=== PATIENT | male | born 1990 | race Two or more races ===

== ENCOUNTER 2025-03-03 14:17 | Inpatient (IN) | payer BC ==
[~2025-03-03] VITALS: Ht 157.5 cm; Wt 79.8 kg
--- NOTE | 2025-03-03 14:34 | ELECTROCARDIOGRAPH REPORT ---
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 Pancho Buitrago Measurements Intervals [place] Rate: 73 P: 60 GA: 145 QRS: 104 QRSD: 86 T: 23 QT: 333 QTc: 367 Interpretive Statements Sinus rhythm Right axis deviation ST elev, probable normal early repol pattern Electronically Signed On 03-04-2025 19:28:[address] Pancho Buitrago Please click the below link to view image of tracing.
[2025-03-03 14:58] LABS: MEAN PLATELET VOLUME 9.3 FL (7.4-10.4); RED CELL DISTRIBUTION WIDTH 13.4 % (11.5-14.5)
--- NOTE | 2025-03-03 15:11 | RADIOLOGY REPORT ---
CHEST RADIOGRAPH Indication: CP Technique: Single frontal view of the chest was obtained Comparison: None FINDINGS: Lines and Tubes: None Lungs: No focal consolidation. Pleura: No effusion. No pneumothorax. Cardiomediastinal contours: Unremarkable Bones: No acute osseous abnormality. IMPRESSION: No acute cardiopulmonary disease.
[2025-03-03 15:17] LABS: CREATININE 0.84 MG/DL (0.60-1.10); PRO BRAIN NATRIURETIC PEPTIDE 308 PG/ML (0-125); TOTAL CARBON DIOXIDE 30.4 MMOL/L (24-32); eCRCL 94 ML/MIN; eGFR > 90 ML/MIN
--- NOTE | 2025-03-03 15:56 | Physician Documentation ---
History of Present Illness ~ Chief Complaint: Chest Pain Stated Complaint: CHEST PAIN Time Seen by MD: 15:06 Source: patient, family Mode of Arrival: Ambulatory Exam Limitations: language barrier HPI Patient in with intermittent left chest pain over the past week. Pain is worse with activity. Sometimes he feels short of breath with it. He has never had this kind of pain before. Otherwise healthy. Does not take any medication. Smoked for about a year several years ago. Medication Reconciliation Allergies: Coded Allergies: No Known Allergies (Unverified , 03/03/25) Review of Systems All Other Systems at this time: Reviewed and Negative Physical Exam Vital Signs: Temperature: 97.1, Source: Temporal, Heart Rate: 75, Respiratory Rate: 15, BP: 161/87, Pulse Oximetry: 98, Weight: 79.800 Oxygen Flow Rate: 0 General Appearance: alert, WD/WN Neck: normal inspection, full range of motion Respiratory: lungs clear, normal breath sounds, no respiratory distress Chest: no accessory muscle use Cardiovascular: normal peripheral pulses, regular rate, rhythm, no edema, no murmur Gastrointestinal: normal palpation, non-tender Extremities: normal inspection Neurologic: oriented x4, memory intact Psychiatric: normal mood/affect Skin: normal color, warm/dry Progress Progress Note Patient in with intermittent chest pain over the last week. Much worse with activity. Initial troponin elevated to 701. Will NSTEMI or acute coronary syndrome. EKG shows early repolarization. Gave 324 of aspirin. Started on a heparin drip. Patient is otherwise stable. Discussed with hospitalist team who will admit for further treatment. Critical care time spent 30 minutes with patient care, chart work and consultation. Results/Orders Results/Orders Orders - DARI MAJANO MD Chest,Single View (03/03/25 14:33) Monitor (03/03/25 14:33) Saline Lock (03/03/25 14:33) Oxygen (03/03/25 14:33) Hs Troponin I W Calculations (03/03/25 16:33) Hs Troponin I W Calculations (03/03/25 17:33) Page Hospitalist (03/03/25 ) Heparin Drip Acs*Rph-To-Dose* (Heparin D (03/03/25 16:00) Completed Orders - DARI MAJANO MD Chest,Single View (03/03/25 14:33) Cbc/Diff (03/03/25 14:33) BMP (03/03/25 14:33) PBNP (03/03/25 14:33) Electrocardiogram (03/03/25 14:33) Hs Troponin I W Calculations (03/03/25 14:33) Aspirin 81mg Chew Tablet (Aspirin 81mg C (03/03/25 15:50) Vital Signs 03/03/25 03/03/25 03/03/25 14:23 15:10 15:13 Temp 97.1 Pulse 75 75 Resp 15 13 15 B/P (MAP) 146/85 161/87 (111) Pulse Ox 98 98 O2 Flow Rate 0 Laboratory Tests Test 03/03/25 14:31 White Blood Count 9.1 Red Blood Count 5.02 Hemoglobin 15.3 Hematocrit 44.1 Mean Corpuscular Volume 87.9 Mean Corpuscular Hemoglobin 30.4 Mean Corpuscular Hemoglobin Concent 34.6 Red Cell Distribution Width 13.4 Platelet Count 283 Mean Platelet Volume 9.3 Neutrophils (%) (Auto) 73.9 Lymphocytes (%) (Auto) 18.4 L Monocytes (%) (Auto) 6.3 Eosinophils (%) (Auto) 0.8 Basophils (%) (Auto) 0.6 Neutrophils # (Auto) 6.7 Lymphocytes # (Auto) 1.7 Monocytes # (Auto) 0.6 Eosinophils # (Auto) 0.1 Basophils # (Auto) 0.1 CBC Comment Sodium Level 138 Potassium Level 3.8 Chloride Level 102 Carbon Dioxide Level 30.4 Anion Gap 6 L Blood Urea Nitrogen 11 Creatinine 0.84 Estimated GFR/1.73 m2 > 90 BUN/Creatinine Ratio 13.1 Glucose Level 101 Calcium Level 9.1 Troponin I High Sensitivity 701 *H Pro-B-Type Natriuretic Peptide 308 H Albumin 3.9 Chemistry Comments EKG/XRAY/CT/US/VASC/MRI EKG : EKG Rate: 73 EKG: NSR, no ST T wave changes Medical Decision Making Additional Information Differential includes but isn't limited to: Myocardial infarction, dissection, tamponade, pneumothorax, pneumonia, GERD, gastritis, pancreatitis costochondrit is, pleuritis, pericarditis Departure Disposition: ADMITTED INPATIENT Admitted to Inpatient Unit: yes, to hospitalist Admission Level of Care: Med/Surg with Tele Impression: Primary Impression: NSTEMI (non-ST elevated myocardial infarction) Condition: Stable Referrals: NO PRIMARY CARE PROVIDER (PCP) Signature Scribe Signature: No scribe used Attestation: No scribe used DARI MAJANO MD Mar 03, 2025 15:56
[2025-03-03] MEDS ORDERED: heparin 10,000 units/1 ML INJ IV PRN (16:00)
[2025-03-03] MEDS: heparin 25,000 UNIT/250ml bag 250 ML IV PRN (16:39)
[2025-03-03] MEDS: heparin 10,000 units/1 ML INJ IV ONE (16:40)
[2025-03-03] MEDS: HEPARIN DRIP-CARDIAC**PHARMACIST-TO-DOSE IV ONE (16:43)
[2025-03-03] MEDS: MESSAGE TO NURSING IV ONE (16:44)
[2025-03-03] MEDS ORDERED: HYDROcodone/acetaminophen 5mg/325mg tablet PO PRN ×2 (17:25→20:05)
[2025-03-03] MEDS ORDERED: mag hydrox/Alum hydrox/simeth 30ml oral suspension PO PRN (17:25)
[2025-03-03] MEDS ORDERED: magnesium sulf-water 2g/50mL 50 ML IV PRN (17:25)
[2025-03-03] MEDS ORDERED: magnesium sulf-water 4G/100mL 100 ML IV PRN (17:25)
[2025-03-03] MEDS ORDERED: magnesium Cl slow-release 64mg tablet PO PRN (17:25)
[2025-03-03] MEDS ORDERED: magnesium hydroxide 30ml (MOM) UD suspension PO PRN (17:25)
[2025-03-03] MEDS ORDERED: potassium Cl 40MEQ/1/2NS 520ml 520 ML IV PRN (17:25)
[2025-03-03] MEDS ORDERED: potassium Cl 20 mEq SR tablet PO PRN ×2 (17:25)
[2025-03-03] MEDS ORDERED: ondansetron/PF 4mg/2ml inj IV PRN ×2 (17:25→20:05)
[2025-03-03] MEDS: PERFLUTREN PROTEIN-A MICROSPHR (Optison) 0.22 MG/ML 3ML VIAL IV ONE (17:51)
[2025-03-03 18:05] LABS: PHOSPHORUS 3.4 MG/DL (2.3-4.5)
--- NOTE | 2025-03-03 18:17 | HISTORY AND PHYSICAL-Residence ---
History & Physical Providers to CC Resident Creating Document: BUBBA CHILDRESS RES ~ History of Present Illness Primary Medical Doctor: NO PRIMARY CARE Reason for Admit\Complaint: CHEST PAIN History of Present Illness 34-year-old gentleman, Greenlandic-speaking (informant: Mr. Pratt, family friend is at bedside) without much establishied medical history presented to the ER with a chief complaint of chest pain. Endorses chest pain, over the retrosternal area, burning type, radiating to left upper arm initially rated as 6/10 but 3/10 now, aggravated with exercise, walking and relieved with rest and nitroglycerin, lasted for 5 minutes duration, multiple episodes on and off. He denied shortness of breath, easy fatigability, palpitations, pedal edema, syncope, abdominal pain, Allergies: Coded Allergies: No Known Allergies (Unverified , 03/03/25) Past Medical History Past Medical History Noncontributory Past Surgical History Surgical History Comment Noncontributory Past Social History Smoking: Non-Smoker Alcohol Use: Occasionally Drug Use: None ROS All Other Systems: Reviewed and Negative ROS Reviewed in full and negative except positive pertinent as in HPI Exam Vitals: Vital Signs Date Time Temp Pulse Resp B/P (MAP) Pulse Ox O2 Delivery O2 Flow Rate FiO2 03/03/25 17:17 77 19 148/97 (114) 99 03/03/25 16:46 0 03/03/25 14:23 97.1 General: General Appearance: alert, awake, oriented time place person. He is a pleasant male. Not in acute distress. And in chest pain. Neck: normal inspection, full range of motion. No JVD. No carotid upstroke Respiratory: lungs clear, normal breath sounds, no respiratory distress. No crepitation/wheezing Chest: no accessory muscle use Cardiovascular: regular rate, rhythm, heard S1-S2. No S3-S4. no murmur/rub. Gastrointestinal: normal palpation, soft, non-tender. Nondistended. Bowel sounds are heard. No guarding, rigidity Extremities: No clubbing, cyanosis, pedal edema Neurologic: No focal neurological deficits Psychiatric: normal mood/affect Skin: normal color, warm/dry Diagnostic Data Last Recorded Lab Results: 03/03/25 1431 03/03/25 1431 Diagnostic Data: Laboratory Tests Test 03/03/25 14:31 03/03/25 18:06 APTT (Heparin Protocol) 29 SECONDS (45-60) L Coagulation Comments Advance Care Planning Advanced Care planning: Add on additional 30 min Additional Plan Coronary artery disease Acute coronary syndrome NSTEMI -inferior wall Hypertension, new onset Reviewed the EKG and it is showing ischemic changes in 2 3 AVF Troponins are trended up to 900s from 700 Blood pressures are fluctuating between 140s to 160 CBC and CMP is unremarkable Started on heparin drip On aspirin 81 mg, atorvastatin 80 mg Ordered lipid panel, A1c Consulted Dr. 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
[2025-03-03 18:25] LABS: APTT 67 SECONDS (22-32); INR 1.0 INR
--- NOTE | 2025-03-03 18:30 | CONSULTATION REPORT ---
Cardiac Consultation Report Providers to CC ~ Subjective Subjective Cardiology consultation: I was seeing another patient in the emergency room and the hospitalist resident called me to see this patient. He presented with substernal chest pain at rest. He still has residual substernal discomfort on intravenous heparin. Two sets of troponin shows progressive rise. Resting electrocardiogram shows early repolarization pattern with intraventricular conduction defect versus impending inferior wall MA. He does not take any medication. Nonsmoker. He does drink alcohol. He is and is expecting another child. Gives a history of two weeks or more of increasing chest pain with all activities. Allergies none medications none He has limited [place] born in [place] he has been in the [place] five [place] Objective Vitals Vital Signs Date Time Temp Pulse Resp B/P (MAP) Pulse Ox O2 Delivery O2 Flow Rate FiO2 03/03/25 18:16 97.1 83 16 124/61 (82) 99 0 Lab Results: 03/03/25 1431 03/03/25 1431 Objective Carotid brisk upstroke no bruit chest clear to auscultation percussion heart no murmur no S3 gallop no rub abdomen active bowel sounds no bruits pulses plus two in upper and lower extremities no varicosities no clubbing no edema. Ocular motion intact no nystagmus no tremors speech fluent. Gait not tested. Plantar withdrawal. Socks were taken off. Coagulation Studies Laboratory Tests Test 03/03/25 14:31 03/03/25 18:06 APTT (Heparin Protocol) 29 SECONDS (45-60) L Prothrombin Time 10.3 SECONDS (9.0-12.0) INR International Normalized Ratio 1.0 INR Activated Partial Thromboplast Time 67 SECONDS (22-32) H Coagulation Comments Problem\Assessment\Plan Additional Plan Impression non ST elevated MA with persistent pain suggestive of impending MA ST elevated. Resting electrocardiogram could be interpreted as repolarization pattern inferiorly versus acute. Recommendation: Emergent coronary bypass grafting. Risks benefits alternatives discussed with patient. Family friend assisted in conversation. He does understand [place] Irish fairly well risks include and not restricted to stroke myocardial infarction renal failure neurologic vascular complications bleeding complications allergic reaction emergency coronary bypass grafting with intervention and other. He wants to proceed. Charge nurses contacted at two called the laborer pipeline in urgently. NAUPAMA PIÑA MD Mar 03, 2025 18:30
[2025-03-03] MEDS ORDERED: midazolam 1 mg/ML 2ml injection ONE (18:33)
[2025-03-03] MEDS ORDERED: iohexol 350 MG/ML 50ML vial IV ONE (18:33)
[2025-03-03] MEDS ORDERED: fentaNYL/PF 50MCG/1 ML 2ML syringe ONE (18:33)
[2025-03-03] MEDS ORDERED: LIDOcaine 1% 30ml preserv. free vial ONE (18:33)
[2025-03-03] MEDS ORDERED: heparin 1,000unit/ml 10ml vial 0 ML ONE (18:34)
[2025-03-03 19:17] LABS: LEUKOCYTE ESTERASE ,URINE NEGATIVE (Neg); NITRITES, URINE NEGATIVE (Neg); OCCULT BLOOD,URINE NEGATIVE (Neg); UA COLLECTION TYPE URINAL
[2025-03-03 19:27] LABS: URINE AMPHETAMINE SCREEN NEGATIVE (Neg); URINE BARBITUATE SCREEN NEGATIVE (Neg); URINE BENZODIAZEPINES SCREEN NEGATIVE (Neg); URINE CANNABINOID SCREEN NEGATIVE (Neg); URINE COCAINE SCREEN NEGATIVE (Neg); URINE METHADONE SCREEN NEGATIVE (Neg); URINE OPIATE SCREEN NEGATIVE (Neg); URINE PHENCYCLIDINE SCREEN NEGATIVE (Neg)
--- NOTE | 2025-03-03 19:42 | CARDIAC CATH REPORT ---
Cardiology Post Cath Findings Providers to Cardiology post catheterization note: Uncomplicated left heart catheterization coronary arteriography angiography left ventriculography Angio-Seal application right femoral artery. Indication: Non ST elevated [place]. abnormal electrocardiogram. Findings: Small apical akinetic segment elevated left ventricular end-diastolic pressure 20 mm Hg. 2. 30% proximal left anterior descending 3. Removed large right coronary and left circumflex. Anterior descending smaller than right coronary and left circumflex . Recommendation: Treat patient as Takotsubo's cardiomyopathy. Aspirin Plavix statin beta lexii. Out of bed in a.m. ambulate he is stable could be discharged on 03/05/2025. ANUPAMA PIÑA MD Mar 03, 2025 19:42
[2025-03-03] MEDS: docusate sod 100mg capsule PO SCH (20:00)
[2025-03-03] MEDS: K and/or MAG REPLACEMENT MC SCH (20:00)
[2025-03-03] MEDS ORDERED: HYDROcodone/acetaminophen 10/325mg tab PO PRN (20:05)
[2025-03-03] MEDS ORDERED: OXAZEpam 15mg capsule PO PRN (20:05)
[2025-03-03 20:18] VITALS: RESP 20; O2SAT 93
[2025-03-03 22:00] VITALS: BP 105/63; PULSE 67; RESP 18; TEMP 97.9; O2SAT 97
[2025-03-04] VITALS (8 sets, daily range): BP systolic 108–143; BP diastolic 69–87; PULSE 67–99; RESP 12–20; TEMP 97.7–98.1; O2SAT 94–100
[2025-03-04 01:03] LABS: MEAN PLATELET VOLUME 9.2 FL (7.4-10.4); RED CELL DISTRIBUTION WIDTH 13.3 % (11.5-14.5)
[2025-03-04 01:32] LABS: CHOL/HDL RATIO 8.4 (0.00-4.99); CREATININE 0.92 MG/DL (0.60-1.10); LDL CHOLESTEROL 244 MG/DL (50-100); TOTAL CARBON DIOXIDE 28.2 MMOL/L (24-32); eCRCL 86 ML/MIN; eGFR > 90 ML/MIN
[2025-03-04] MEDS ORDERED: normal saline 1000ml 1,000 ML IV SCH (02:40)
[2025-03-04] MEDS ORDERED: HYDROcodone/acetaminophen 10/325mg tab PO PRN (02:40)
[2025-03-04] MEDS ORDERED: ondansetron/PF 4mg/2ml inj IV PRN (02:40)
[2025-03-04] MEDS ORDERED: HYDROcodone/acetaminophen 5mg/325mg tablet PO PRN (02:40)
[2025-03-04] MEDS ORDERED: OXAZEpam 15mg capsule PO PRN (02:40)
[2025-03-04] MEDS: normal saline 1000ml 1,000 ML IV SCH (06:05)
[2025-03-04] MEDS: aspirin 81mg, enteric-coated 1 TAB TABLET.DR PO SCH (08:32)
[2025-03-04] MEDS: metoprolol succinate 25mg (24-HOUR) SR. Tablet PO SCH (09:41)
--- NOTE | 2025-03-04 10:05 | CARDIOLOGY REPORT ---
DATE OF SERVICE: 03/03/2025 DICTATING PHYSICIAN: Brendon Mueller MD PROCEDURES: * Left heart catheterization. * Left ventriculography. * Selective left and right coronary arteriography. * Right iliofemoral arteriogram. * Angio-Seal application. * Conscious sedation administration 30 minutes. BRIEF HISTORY AND INDICATION: A 34-year-old male had onset of chest pain , anginal. He has been having exertional substernal chest pain prior. He just took time off from work for the delivery of his child. His is . Troponins are elevated. EKG shows early repolarization pattern in the inferior lead with ventricular conduction defect. Risks, benefits, and alternatives of diagnostic coronary angiography were discussed with him and he has decided to proceed. He is on heparin. Risks included, but not restricted to , stroke, myocardial infarction, renal failure, neurologic, risk complication, bleeding complications, allergic reaction, intervention as may be needed with its attendant complications. TECHNIQUE: Following the usual sterile preparation and draping, the right groin was infiltrated with 10 mL 1% lidocaine local anesthetic. Conscious sedation was achieved with 2 mg Versed, 100 mcg fentanyl and 25 mg Benadryl intravenously. Following single wall puncture technique, J-tip guidewire lead, a 6-[place] sheath was introduced into the right femoral artery. Selective left and right coronary arteriography and multiple junctional obliquities were performed with Kaia preformed catheters. Left ventricular colonography and right anterior oblique projection was performed with a 6-[place] straight pigtail catheter. The left anterior descending was difficult to isolate due to multiple overlapping vessels. At termination, right iliofemoral arteriogram was performed. Angio-Seal was applied in laboratory monitor. Hemostasis was obtained. There were no complications. 90 mL of Omnipaque 350 contrast was administered. Fluoroscopy time was 3 minutes. Radiation exposure was 5418 cGy per cm2. FINDINGS: The left main coronary 10% narrowed. Small left anterior descending is 40% proximal eccentric narrowing. Large left circumflex obtuse marginal has a 25% proximal narrowing, 20% narrowing of the mid left circumflex that supplies a small obtuse marginal, posterolateral and large left atrial branch. Right coronary is reciprocally large. Posterior descending artery bifurcates, reaches the apex. Posterolateral is large, wraps around the apex of the myocardium. LEFT VENTRICULOGRAM: Small apical akinetic segment. AO 151/87, LV 153/16-30. Right radial femoral artery smooth. RESULTS: * Small apical akinetic segment, ejection fraction 66%, elevated left ventricular end-diastolic pressure. * 10% left main coronary artery narrowing. * 40% proximal eccentric left anterior descending narrowing. * Obtuse marginal with 25% narrowing, mid left circumflex 20% narrowing. * Right coronary reciprocally large 10% narrowing, large posterior descending and posterolateral wrap around the apex of the myocardium. COMMENT: The patient appears to have Takotsubo's cardiomyopathy stress induced. RECOMMENDATIONS: He is recommended for treatment, aspirin, Plavix, statin, beta-lexii. Brendon Mueller MD TID: [id number] RECEIPT: [id number] BENITO/GARFIELD
[2025-03-04] MEDS ORDERED: NO HOME MEDS PO (14:17)
--- NOTE | 2025-03-04 15:41 | CARDIOLOGY REPORT ---
APPROVED REPORT EXAM: Comprehensive 2D, Doppler, and color-flow Echocardiogram. Patient Location: [facility] Blood Pressure: 143/87 mmHg Heart Rate: 69 bpm Rhythm: NSR Indications CAD Chest Pain SOB Troponin 701, 898, 1297, 1995 Pro BNP 308 No spot remover No previous echo 2D Dimensions LA Diam3.5 cm IVSd 1.0 (0.7-1.1cm) LVDd 4.2 cm PWd 1.0 (0.7-1.1cm) IVSs 1.3 (0.8-1.2cm) LVDs 2.7 (2.5-4.0cm) Aortic Root(2D) 2.9 cm PWs 1.3 (0.8-1.2cm) LVOT Diameter 1.95 (1.8-2.4cm) LVEF(%) 64.9 (>50%) Ao Asc Diam.2.73 cmIVC 16.70 mm FS (%) 35.2 % SV 51.3 ml CO 3.4 L/min M-Mode Dimensions MV EPSS 0.4 (<0.5cm) Aortic Valve AoV Peak Vinh. 146.1 cm/s AoV VTI 27.8 cm AO Peak GR. 8.5 mmHg AO Mean GR. 4 mmHg LVOT VTI 26.40 cm LVOT Peak Vinh. 129.0 cm/s OTF(VTI)/BSA 2.85 cm2/m2 OTF (VTI) 2.85 cm2 Mitral Valve MV E Velocity 101.4 cm/s MV Peak Gr. 5 mmHg MV DECEL TIME 196 ms MV A Velocity 52.2 cm/s MV PHT 56 ms E/A Ratio 1.9 MVA (PHT) 3.93 cm2 MV MNua524.7 cm/s TDI Medial E' P. V 11.63 cm/s E/Medial E' 8.7 Tricuspid Valve RAP ESTIMATE 10 mmHg Pulmonary Vein S1 Velocity 40.0 cm/s D2 Velocity 48.5 cm/s PVa Gexwxatn03.2 cm/s PVa [id number] msec LEFT VENTRICLE Normal LV size and wall thickness. Overall systolic function is normal. Overall LVEF is 65%. RIGHT VENTRICLE RV is normal size and function. ATRIA The left atrium size is normal. AORTIC VALVE Trileaflet AV appears sclerotic without stenosis. No insufficiency. MITRAL VALVE MV is thickened with no annular calcification or stenosis. Trace mitral regurgitation. TRICUSPID VALVE The tricuspid valve is normal in structure. Trace tricuspid regurgitation. PULMONIC VALVE The pulmonary valve is normal in structure. Trace pulmonic regurgitation. GREAT VESSELS The aortic root is normal in size. The ascending aorta is normal in size. The IVC is normal in size a nd collapses >50% with inspiration. PERICARDIUM There is no pericardial effusion. Other Information Study Quality: Adequate Conclusion Overall LVEF is 65%. Normal LV size and wall thickness. Overall systolic function is normal. RV is normal size and function. Trileaflet AV appears sclerotic without stenosis. No insufficiency. Trace mitral regurgitation. Trace tricuspid regurgitation. Trace pulmonic regurgitation. There is no pericardial effusion.
--- NOTE | 2025-03-04 20:56 | PROGRESS NOTE- Residence ---
Progress Note - Resident Providers to CC Resident Creating Document: ISHAN CLAROS, YUVAL ~ Antibiotic Timeout Antibiotic Ordered?: No Subjective Patient seen and examined at the bedside today. The patient reported that his chest pain improved significantly. He denied any concerns of shortness of breath, palpitation or any other symptoms. The patient was explained regarding his symptoms and his condition most likely being a takotsubo cardiomyopathy. The patient also was explained regarding the importance of having establishing a primary care physician. We recommended the patient to be established with a [facility]. Resources will be provided to him. Objective Vital Signs Date Time Temp Pulse Resp B/P (MAP) Pulse Ox O2 Delivery O2 Flow Rate FiO2 03/04/25 15:00 97.7 74 17 116/69 (85) 98 Room Air 03/03/25 18:16 0 Result Diagram: 03/04/253403/04/2534 General: Awake and Alert, no acute distress. HEENT: Conjunctiva pink, Sclera clear, Mucus Membranes moist. Neck: Supple without masses and tenderness. Resp: Unlabored. Lungs clear to auscultation bilaterally. Heart: Regular Rate and rhythm, normal S1 and S2 without murmur, rub or gallop. Abdomen: Soft and non tender no organomegaly Extremities: No cyanosis,clubbing or edema. Skin: Warm and Dry. Neurology: No focal motor or sensory deficits. Coagulation Studies Laboratory Tests Test 03/03/25 14:31 03/03/25 18:06 APTT (Heparin Protocol) 29 SECONDS (45-60) L Prothrombin Time 10.3 SECONDS (9.0-12.0) INR International Normalized Ratio 1.0 INR Activated Partial Thromboplast Time 67 SECONDS (22-32) H Coagulation Comments Assessment Assessment 34-year-old male with no significant past medical history admitted in the hospital for evaluation management of chest pain most likely secondary to takotsubo cardiomyopathy. Plan Plan Chest pain Takotsubo cardiomyopathy NSTEMI-ruled out The patient underwent cardiac catheterization by Dr. Mueller yesterday. The cardiac catheterization report shows small apical akinetic segment, ejection fraction of 66% with elevated left ventricular end-diastolic pressure. Per Dr. Mueller the patient appears to have a takotsubo cardiomyopathy. Started the patient on aspirin 81 mg p.o. daily, Plavix 75 mg p.o. daily, metoprolol succinate 25 mg p.o. daily and lisinopril 5 mg p.o. daily. We will follow up with the echocardiography. Hyperlipidemia Hypertriglyceridemia Started the patient on atorvastatin 80 mg daily. Recommend to use 80 mg daily for one month and switch to 40 mg daily from thereafter. Started the patient on [place] fatty acid supplementation. The patient has been educated regarding the importance of lifestyle modification in view of his hypertriglyceridemia. He has been advised to do more physical activity sudden exercises. The patient also been advised about dietary modifications necessary in view of his significantly elevated lipid levels. CODE STATUS: Full code DVT prophylaxis: SCDs under fully ambulatory. GI prophylaxis: None Diet: Heart healthy diet Disposition: Continue medical management. Anticipate discharge in the next 24- 48 hours. Ishan Claros MD Internal Medicine Resident, PGY-2 Date of Service: Mar 04, 2025 Billing Provider: RHETT COLORADO MD, SURYA PRATIK, RES Mar 04, 2025 20:56
[2025-03-05 02:00] VITALS: BP 96/64; PULSE 62; RESP 16; TEMP 97.5; O2SAT 97
[2025-03-05 06:00] VITALS: BP 106/70; PULSE 63; RESP 15; TEMP 97.4; O2SAT 98
[2025-03-05 06:19] LABS: MEAN PLATELET VOLUME 9.3 FL (7.4-10.4); RED CELL DISTRIBUTION WIDTH 13.5 % (11.5-14.5)
[2025-03-05 06:47] LABS: CREATININE 0.75 MG/DL (0.60-1.10); TOTAL CARBON DIOXIDE 27.4 MMOL/L (24-32); eCRCL 105 ML/MIN; eGFR > 90 ML/MIN
[2025-03-05 08:00] VITALS: RESP 15; O2SAT 98
[2025-03-05] MEDS: OMEGA-3/DHA/EPA/FISH OIL 1 EACH CAPSULE.DR PO SCH (08:09)
[2025-03-05] MEDS ORDERED: CLOP-32 PO (10:41)
[2025-03-05] MEDS ORDERED: EZET10TA6 PO (10:41)
[2025-03-05] MEDS ORDERED: ATOR-2 PO (10:41)
[2025-03-05] MEDS ORDERED: LISI5TAB22 PO (10:41)
[2025-03-05] MEDS ORDERED: NITR0.4T48 SL (10:41)
[2025-03-05] MEDS ORDERED: METO-395 PO (10:41)
[2025-03-05] MEDS ORDERED: ASPI81TA52 PO (10:41)
[2025-03-05 10:49] VITALS: BP 111/65; PULSE 81; RESP 16; TEMP 97.6; O2SAT 96
--- NOTE | 2025-03-05 19:35 | DISCHARGE SUMMARY-Residence ---
Discharge Summary Providers to CC Resident Creating Document: BUBBA CHILDRESS, RES ~ Discharge Summary Admission Diagnosis: ACS-NSTEMI Hospital Course DATE OF ADMISSION: 03/03/25 DATE OF DISCHARGE: 03/05/2025 Chest x-ray IMPRESSION: No acute cardiopulmonary disease. Echocardiogram Conclusion Overall LVEF is 65%. Normal LV size and wall thickness. Overall systolic function is normal. RV is normal size and function. Trileaflet AV appears sclerotic without stenosis. No insufficiency. Trace mitral regurgitation. Trace tricuspid regurgitation. Trace pulmonic regurgitation. There is no pericardial effusion. Discharge Diagnosis\Comment: Angina Nonobstructive Coronary artery disease Takotsubo cardiomyopathy Hyperlipidemia Hypertension, new onset Operations\Procedures: Cardiac catheterization report DATE OF SERVICE: 03/03/2025 DICTATING PHYSICIAN: Brendon Mueller MD PROCEDURES: * Left heart catheterization. * Left ventriculography. * Selective left and right coronary arteriography. * Right iliofemoral arteriogram. * Angio-Seal application. * Conscious sedation administration 30 minutes. BRIEF HISTORY AND INDICATION: A 34-year-old male had onset of chest pain , anginal. He has been having exertional substernal chest pain prior. He just took time off from work for the delivery of his child. His is . Troponins are elevated. EKG shows early repolarization pattern in the inferior lead with ventricular conduction defect. Risks, benefits, and alternatives of diagnostic coronary angiography were discussed with him and he has decided to proceed. He is on heparin. Risks included, but not restricted to , stroke, myocardial infarction, renal failure, neurologic, risk complication, bleeding complications, allergic reaction, intervention as may be needed with its attendant complications. TECHNIQUE: Following the usual sterile preparation and draping, the right groin was infiltrated with 10 mL 1% lidocaine local anesthetic. Conscious sedation was achieved with 2 mg Versed, 100 mcg fentanyl and 25 mg Benadryl intravenously. Following single wall puncture technique, J-tip guidewire lead, a 6-Icelandic sheath was introduced into the right femoral artery. Selective left and right coronary arteriography and multiple junctional obliquities were performed with Kaia preformed catheters. Left ventricular colonography and right anterior oblique projection was performed with a 6-Icelandic straight pigtail catheter. The left anterior descending was difficult to isolate due to multiple overlapping vessels. At termination, right iliofemoral arteriogram was performed. Angio-Seal was applied in garage laborer. Hemostasis was obtained. There were no complications. 90 mL of Omnipaque 350 contrast was administered. Fluoroscopy time was 3 minutes. Radiation exposure was 5418 cGy per cm2. FINDINGS: The left main coronary 10% narrowed. Small left anterior descending is 40% proximal eccentric narrowing. Large left circumflex obtuse marginal has a 25% proximal narrowing, 20% narrowing of the mid left circumflex that supplies a small obtuse marginal, posterolateral and large left atrial branch. Right coronary is reciprocally large. Posterior descending artery bifurcates, reaches the apex. Posterolateral is large, wraps around the apex of the myocardium. LEFT VENTRICULOGRAM: Small apical akinetic segment. AO 151/87, LV 153/16-30. Right radial femoral artery smooth. RESULTS: * Small apical akinetic segment, ejection fraction 66%, elevated left ventricular end-diastolic pressure. * 10% left main coronary artery narrowing. * 40% proximal eccentric left anterior descending narrowing. * Obtuse marginal with 25% narrowing, mid left circumflex 20% narrowing. * Right coronary reciprocally large 10% narrowing, large posterior descending and posterolateral wrap around the apex of the myocardium. COMMENT: The patient appears to have Takotsubo's cardiomyopathy stress induced. RECOMMENDATIONS: He is recommended for treatment, aspirin, Plavix, statin, beta-lexii. Consultants: Dr. Mueller Complications: None Condition on DC: Stable New Medications: Aspirin (Aspirin EC) 81 Mg Tablet.dr 1 TAB PO DAILY for 30 Days, #30 TAB Clopidogrel Bisulfate (Plavix) 75 Mg Tablet 1 TAB PO DAILY for 30 Days, #30 TAB 0 Refills Ezetimibe (Zetia) 10 Mg Tablet 1 TAB PO DAILY for 30 Days, #30 TAB 0 Refills Nitroglycerin (Nitroglycerin) 0.4 Mg Tab.subl 1 TAB SL UD for chest pain, #25 TAB 0 Refills 1st sign of attack; may repeat every 5 mins; if pain persists after 3 in 15 min, medical attention is recommended Atorvastatin Calcium (Atorvastatin Calcium) 80 Mg Tablet 1 TAB PO DAILY for 30 Days, #30 TAB 0 Refills Lisinopril (Lisinopril) 5 Mg Tablet 5 MG PO DAILY for 30 Days, #30 TAB Metoprolol Succinate (Metoprolol Succinate) 25 Mg Tab.sr.24h 25 MG PO DAILY for 30 Days, #30 TAB.SR Discharge Summary: HPI at the time of admission 34-year-old gentleman, Welsh-speaking (informant: Mr. Pratt, family friend is at bedside) without much establishied medical history presented to the ER with a chief complaint of chest pain. Endorses chest pain, over the retrosternal area, burning type, radiating to left upper arm initially rated as 6/10 but 3/10 now, aggravated with exercise, walking and relieved with rest and nitroglycerin, lasted for 5 minutes duration, multiple episodes on and off. He denied shortness of breath, easy fatigability, palpitations, pedal edema, syncope, abdominal pain, Course in the hospital Admitted for chest pain and coronary artery disease ACS- inferior wall ischemic changes and we consulted Dr. Mueller on and he agrees to do cardiac catheterization and underwent cardiac catheterization on 03/03/2025. The cardiac catheterization report shows small apical akinetic segment, ejection fraction of 66% with elevated left ventricular end-diastolic pressure. He was started on heparin drip. Per Dr. Mueller the patient appears to have a takotsubo cardiomyopathy. We Started the patient on aspirin 81 mg p.o. daily, Plavix 75 mg p.o. daily, metoprolol succinate 25 mg p.o. daily and lisinopril 5 mg p.o. daily. Takotsubo's cardiomyopathy per Dr. Mueller. Started on ezetimibe in view of LDL more than 200. Echo showed ejection fraction of more than 65%. Received a heart healthy diet. Discharged and recommended to follow up with primary care physician at [facility]. Examination time of discharge Vital Signs Date Time Temp Pulse Resp B/P (MAP) Pulse Ox O2 Delivery O2 Flow Rate FiO2 03/05/25 10:49 97.6 81 16 111/65 (80) 96 Room Air 03/03/25 18:16 0 Examination General: Awake and Alert, no acute distress. HEENT: Conjunctiva pink, Sclera clear, Mucus Membranes moist. Neck: Supple without masses and tenderness. Resp: Unlabored. Lungs clear to auscultation bilaterally. Heart: Regular Rate and rhythm, normal S1 and S2 without murmur, rub or gallop. Abdomen: Soft and non tender no organomegaly Extremities: No cyanosis,clubbing or edema. Skin: Warm and Dry. Neurology: No focal motor or sensory deficits. Laboratory Tests Test 03/04/25 00:35 03/05/25 05:42 White Blood Count 8.3 X10'3 7.6 X10'3 Red Blood Count 4.61 X10'6 4.64 X10'6 Hemoglobin 13.9 g/dl 13.8 g/dl Hematocrit 40.1 % 40.6 % Mean Corpuscular Volume 86.9 FL 87.4 FL Mean Corpuscular Hemoglobin 30.1 PG 29.6 PG Mean Corpuscular Hemoglobin Concent 34.7 g/dL 33.9 g/dL Red Cell Distribution Width 13.3 % 13.5 % Platelet Count 245 X10'3 238 X10'3 Mean Platelet Volume 9.2 FL 9.3 FL Neutrophils (%) (Auto) 61.9 % 67.7 % Lymphocytes (%) (Auto) 29.6 % 22.3 % Monocytes (%) (Auto) 6.5 % 8.1 % Eosinophils (%) (Auto) 1.5 % 1.3 % Basophils (%) (Auto) 0.5 % 0.6 % Neutrophils # (Auto) 5.1 X10'3 5.1 X10'3 Lymphocytes # (Auto) 2.5 X10'3 1.7 X10'3 Monocytes # (Auto) 0.5 X10'3 0.6 X10'3 Eosinophils # (Auto) 0.1 X10'3 0.1 X10'3 Basophils # (Auto) 0.0 X10'3 0.0 X10'3 CBC Comment Sodium Level 136 MMOL/L 135 MMOL/L Potassium Level 3.6 MMOL/L 3.9 MMOL/L Chloride Level 102 MMOL/L 101 MMOL/L Carbon Dioxide Level 28.2 MMOL/L 27.4 MMOL/L Anion Gap 6 7 Blood Urea Nitrogen 11 MG/DL 12 MG/DL Creatinine 0.92 MG/DL 0.75 MG/DL Estimated GFR/1.73 m2 > 90 ML/MIN > 90 ML/MIN BUN/Creatinine Ratio 12.0 16.0 Glucose Level 106 MG/DL 108 MG/DL Calcium Level 8.4 MG/DL 8.6 MG/DL Magnesium Level 2.0 MG/DL 2.3 MG/DL Total Bilirubin 0.4 MG/DL 0.6 MG/DL Aspartate Amino Transf (AST/SGOT) 29 U/L 28 U/L Alanine Aminotransferase (ALT/SGPT) 69 U/L 70 U/L Alkaline Phosphatase 118 IU/L 122 IU/L Troponin I High Sensitivity 1994 ng/L Troponin I High Sens Percent Delta 53 % Troponin I Hi Sens Absolute Change 698 ng/L Total Protein 7.1 G/DL 7.1 G/DL Albumin 3.4 G/DL 3.3 G/DL Globulin 3.7 G/DL 3.8 G/DL Albumin/Globulin Ratio 0.9 0.9 Triglycerides Level 388 MG/DL Cholesterol Level 353 MG/DL LDL Cholesterol 244 MG/DL HDL Cholesterol 42 MG/DL Cholesterol/HDL Ratio 8.4 Chemistry Comments Discharge advice followup with pcp at [facility] [place] in 3 days. followup with Program Schedule Clerk in 2 weeks. Continue Heart healthy Diet. call 911 or visit ER if emeregency Continue aspirin 81 mg, clopidogrel 75 mg, atorvastatin 80 mg, ezetimibe 10 mg, nitroglycerin 0.4 mg p.r.n. Q 5 minutes sublingual, lisinopril 5 mg, metoprolol 25 mg *Problems/Diagnosis: (1) Chest pain (2) Takotsubo cardiomyopathy (3) Hyperlipidemia (4) Hypertension Total Time Spent on D/C: > 30 Minutes Date of Service: Mar 05, 2025 Billing Provider: RHETT COLORADO MD, VENKATESH, RES Mar 05, 2025 19:28
== END 2025-03-05 14:49 | disposition home or self-care (01) | DRG 287 ==
LOC: ER 14:18 → ED HOLD 17:22 → PCU 3S 19:50
PROVIDERS: ADMIT Family Medicine; ATTEND Family Medicine
PROC: 4A023N7 Measurement of Cardiac Sampling and Pressure, Left Heart, Percutaneous Approach (ICD-10-PCS; principal; 2025-03-03)
PROC: B2111ZZ Fluoroscopy of Multiple Coronary Arteries using Low Osmolar Contrast (ICD-10-PCS; 2025-03-03)
PROC: B2151ZZ Fluoroscopy of Left Heart using Low Osmolar Contrast (ICD-10-PCS; 2025-03-03)
PROC: B41F1ZZ Fluoroscopy of Right Lower Extremity Arteries using Low Osmolar Contrast (ICD-10-PCS; 2025-03-03)
DX: I25.10 Atherosclerotic heart disease of native coronary artery without angina pectoris (principal); I51.81 Takotsubo syndrome; E78.5 Hyperlipidemia, unspecified
CPT/HCPCS: 36415; 71045; 80048; 80053; 80061; 80305; 81003; 83036; 83735; 83880; 84100; 84484; 85025; 85610; 85730; 87081; 93005; 93306; 93458; 96365; 96376; 99152; 99153; 99285; A6258; C1760; G0378; J1200; J1644; J2003; J2250; J3010; J7030; J7040; Q9967